=== PATIENT | male | born 1995 | race Caucasian/White ===

== ENCOUNTER 2022-05-19 09:10 | Emergency (ER) | payer OTHER ==
[2022-05-19] MEDS ORDERED: fentaNYL INJ 100 MCG/2 ML AMP IVP ONE (09:30)
--- NOTE | 2022-05-19 09:37 | ED Lower Extremity ---
General Chief Complaint: Lower Extremity Stated Complaint: WC LT FOOT INJ Source: patient Exam Limitations: no limitations (BOBY CARBONE) History of Present Illness Date Seen by Provider: May 19, 2022 Time Seen by Provider: 09:23 Initial Comments This is a 27yo M with no reported pmhx who presents for left foot injury this morning. Patient was at work when he endured a left foot injury due to a forklift boom falling on his foot, injury localized to the distal foot. Pt currently at 8/10 pain. Does not have a PCP. Denies any loss of feeling to the toes or feet. Does have limited range of motion of the left toes due to severe pain. No previous surgeries or injuries to the left foot or lower extremity. Pt is not sure when he had his last tetanus vaccination. Endorses cigarette use. Denies alcohol or illicit drug use. Pt reports no known allergies to medications. Location Injury Occurred: Left Foot Onset: this morning Pain/Injury Location: left foot Method of Injury: other (Forklift Boom fell on foot) Modifying Factors: Improves With Other (8/10 pain at rest with no modifying factors) (BOBY CARBONE) Allergies and Home Medications Allergies Coded Allergies: No Known Drug Allergies (Unverified , 05/19/22) Patient Home Medication List Home Medication List Reviewed: Yes (BOBY CARBONE) Oxycodone HCl/Acetaminophen (Percocet 5-325 mg Tablet) 1 Each Tablet, 1-2 TAB PO Q4H Prescribed by: ENRIQUE BLANCA on 05/19/22 1100 Sulfamethoxazole/Trimethoprim (Bactrim Ds Tablet) 1 Each Tablet, 1 EACH PO BID Prescribed by: ENRIQUE BLANCA on 05/19/22 1100 Review of Systems Constitutional: no symptoms reported Musculoskeletal: other (8/10 left foot pain.) Skin: change in color (bruising and erythema of left foot.) Psychiatric/Neurological: No Symptoms Reported (BOBY CARBONE) Past Aqiwxpm-Xuteyu-Mdanan Hx Patient Social History Tobacco Use?: Yes Tobacco type used: Cigarettes Smoking Status: Current Someday Smoker Use of E-Cig and/or Vaping dev: No Substance use?: No Alcohol Use?: No Pt feels they are or have been: No (BOBY CARBONE) Immunizations Up To Date Influenza Vaccine Up-to-Date: No; Not Current First/Initial COVID19 Vaccinat: Denies (BOBY CARBONE) Past Medical History Surgery/Hospitalization HX: Right leg ortho surgery (BOBY CARBONE) Physical Exam Vital Signs Vital Signs - First Documented 05/19/22 09:18 Temp 36.2 Pulse 57 Resp 16 B/P (MAP) 133/92 (106) Pulse Ox 99 O2 Delivery Room Air (ENRIQUE SAENZ MD) Vital Signs Capillary Refill : (BOBY CARBONE) Height, Weight, BMI Height: '" Weight: lbs. oz. kg; BMI Method: General Appearance: WD/WN, no apparent distress Cardiovascular: regular rate, rhythm, no edema, no murmur Respiratory: chest non-tender, lungs clear, normal breath sounds, no respiratory distress, no accessory muscle use Ankles: bilateral ankle non-tender, bilateral ankle normal inspection, bilateral ankle normal range of motion, bilateral ankle no evidence of injury Feet: left foot abrasions/lacerations (2cm laceration on dorsal toe #1), left foot ecchymosis (ecchymosis of distal foot, more prominent in toes #1-3), left foot limited range of motion (limited ROM of toes #1-5), left foot pain (8/10), left foot soft tissue tenderness Neurologic/Tendon: normal sensation, responds to pain Neurologic/Psychiatric: no motor/sensory deficits, alert, normal mood/affect, oriented x 3 (BOBY CARBONE) Progress/Results/Core Measures Results/Orders My Orders Orders - ENRIQUE SAENZ MD Ed Iv/Invasive Line Start (05/19/22 09:25) Fentanyl Inj (Sublimaze Injection) (05/19/22 09:30) Foot 3 View Left (05/19/22 09:31) Dipht,Pertuss(Acell),Tet Adult (Boostrix (05/19/22 09:45) Morphine Injection (Morphine Injection (05/19/22 10:12) Oxycodone/Apap 5/325mg Tablet (Percocet (05/19/22 11:00) (ENRIQUE SAENZ MD) Medications Given in ED Current Medications Medications Dose Ordered Sig/Renato Route Start Time Stop Time Status Last Admin Dose Admin Diphtheria/ Tetanus/Acell Pertussis 0.5 ml ONCE ONCE IM 05/19/22 09:45 05/19/22 09:46 DC 05/19/22 10:24 0.5 ML Fentanyl Citrate 75 mcg ONCE ONCE IVP 05/19/22 09:30 05/19/22 09:31 DC 05/19/22 09:30 75 MCG Oxycodone/ Acetaminophen 1 tab ONCE ONCE PO 05/19/22 11:00 05/19/22 11:01 DC 05/19/22 10:55 1 TAB (ENRIQUE SAENZ MD) Vital Signs/I&O 05/19/22 05/19/22 09:18 11:05 Temp 36.2 36.2 Pulse 57 47 Resp 16 16 B/P (MAP) 133/92 (106) 135/93 Pulse Ox 99 99 O2 Delivery Room Air Room Air (ENRIQUE SAENZ MD) Progress Progress Note : Progress Note Patient was found to have several fractures throughout all 5 toes. Metatarsals appear unaffected. He was first treated with fentanyl followed by morphine by IV route. Pain was eventually treated with Percocet prior to discharge. Wounds were washed with chlorhexidine and saline by nursing staff. There were no wounds appropriate for closure. The 2 lacerations on the dorsum of the foot were shallow and minor. A boot was dispensed and applied after wrapping the foot in gauze. Crutches were dispensed. Occupational health paperwork was completed. Dr. HATFIELD, orthopedic surgeon on-call, was consulted. See [facility] instructions for further discussion. Tetanus booster was administered. (ENRIQUE SAENZ MD) Diagnostic Imaging Diagonstic Imaging: Xray Plain Films/CT/US/NM/MRI: other (Left foot) Comments Left foot x-rays reviewed by me and report reviewed. See report below: NAME: YULY BATISTA [facility] REC#: [id number] PT STATUS: REG ER : 1995 PHYSICIAN: ENRIQUE SAENZ MD ADMIT DATE: 05/19/22/ER FS Signed Date of Exam:05/19/22 FOOT 3 VIEW LEFT CLINICAL HISTORY: Left foot pain. Crush injury. COMPARISON: None. TECHNIQUE: 3 views of the left foot. FINDINGS: Comminuted fracture seen involving the distal phalanx of the left great toe. There is extension into the left 1st IP joint. Additional transverse fracture seen at the distal aspect of the left 2nd proximal phalanx. This fracture does not appear to extend into the left 2nd PIP joint. There is fracture dislocation of the left 3rd DIP joint with additional transverse fracture at the distal aspect of the left 3rd distal phalanx. Likely nondisplaced fracture is seen in the diaphysis of the left 3rd proximal phalanx. There are fractures involving the distal 4th and 5th phalanges and within the middle phalanx of the left 5th digit. No fracture is seen in the more proximal foot. IMPRESSION: 1. Multiple fractures involving phalanges of all 5 digits of the left foot. These appear most significant in the left 1st and 3rd digits. Recommend continued close follow-up. Dictated by: Dictated on workstation # [id number] Dict: 05/19/2243 Trans: 05/19/2248 [id number] Interpreted by: ULYSSES GARCIA DO Electronically signed by: ULYSSES GARCIA DO 05/19/2248 (ENRIQUE SAENZ MD) Departure Impression Primary Impression: Crush injury of left foot Qualified Codes: S97.82XA - Crushing injury of left foot, initial encounter Additional Impressions: Fracture, toe Qualified Codes: S92.912A - Unspecified fracture of left toe(s), initial encounter for closed fracture Multiple fractures Laceration of foot Qualified Codes: S91.312A - Laceration without foreign body, left foot, initial encounter Disposition: 01 HOME, SELF-CARE Condition: Improved Departure-Patient Inst. Decision time for Depature: 10:55 (ENRIQUE SAENZ MD) Referrals: AARON DEL CASTILLO DO (PCP) Primary Care Physician ALANNA PIZARRO MD, MICHAEL P MD Patient Instructions: Contusion (DC), Crush Injury, Toe Fracture ED Add. Discharge Instructions: Elevate your foot to the level of your heart as much as possible. You may apply ice in 20-minute intervals several times a day to help with pain and swelling. Use Percocet as prescribed for pain. Avoid use of NSAID medications such as ibuprofen or naproxen as they may delay bone healing. Do not drive or operate machinery or make important decisions while on Percocet as it may cause significant drowsiness and foggy thinking. Percocet may also cause constipation. You may choose to use a stool softener such as Colace purchased [id number] to help prevent constipation while on Percocet. You need to be seen by an orthopedist or ruby on rails developer as soon as possible. Contact information for orthopedic providers in [place] is listed below. You should contact your work comp provider to discuss specific follow-up instructions or restrictions they may have in addition to following up with an orthopedic provider. Because you have skin wounds near your fracture sites, antibiotics are also being provided to prevent infection. Keep your foot in the boot as much as possible to protect the fractures. You may rest your foot on the ground but do not bear body weight on the foot. Use crutches to ambulate. You may shower as long as you do not bear weight on your foot when the boot is off. Return to care if you have worsening symptoms or other concerns. All discharge instructions reviewed with patient and/or family. Voiced understanding. Scripts Sulfamethoxazole/Trimethoprim (Bactrim Ds Tablet) 1 Each Tablet 1 EACH PO BID, #14 TAB Prov: ENRIQUE SAENZ MD 05/19/22 Oxycodone HCl/Acetaminophen (Percocet 5-325 mg Tablet) 1 Each Tablet 1-2 TAB PO Q4H for PAINMOD MDD 6 TABS, #30 TAB Prov: ENRIQUE SAENZ MD 05/19/22 Medical Student Attestation and Attending Note: I have personally interviewed and examined this patient along with Boby Carbone, MS 4. I have reviewed student documentation including history, physical, and assessments. I agree with the documentation except where otherwise noted. Exam: General: Alert, oriented, mild distress, well developed HEENT: Normocephalic and atraumatic Heart: Regular rate and rhythm without murmur Lungs: Clear to auscultation bilaterally with normal effort Extremities: Distal left foot notably ecchymotic and edematous. The toes are very ecchymotic, particularly the second toe. Sensation is retained throughout all 5 toes. Range of motion severely limited due to pain. Pedal pulses palpable. Abrasion and 2 shallow lacerations on the dorsal distal foot and great toe Neuropsych: Alert, oriented, no focal deficits Skin: Warm and dry without rashes, wounds on the left foot as above. (ENRIQUE SAENZ MD) Copy Copies To 1: TENNILLE HATFIELD MD, ABRAHAM May 19, 2022 09:37 ENRIQUE SAENZ MD May 19, 2022 10:59
[2022-05-19] MEDS ORDERED: TETANUS,DIPTH,PERTUSS P/F (BOOSTRIX) 0.5 ML VIAL IM ONE (09:45)
--- NOTE | 2022-05-19 09:48 | Diagnostic Imaging Report ---
CLINICAL HISTORY: Left foot pain. Crush injury. COMPARISON: None. TECHNIQUE: 3 views of the left foot. FINDINGS: Comminuted fracture seen involving the distal phalanx of the left great toe. There is extension into the left 1st IP joint. Additional transverse fracture seen at the distal aspect of the left 2nd proximal phalanx. This fracture does not appear to extend into the left 2nd PIP joint. There is fracture dislocation of the left 3rd DIP joint with additional transverse fracture at the distal aspect of the left 3rd distal phalanx. Likely nondisplaced fracture is seen in the diaphysis of the left 3rd proximal phalanx. There are fractures involving the distal 4th and 5th phalanges and within the middle phalanx of the left 5th digit. No fracture is seen in the more proximal foot. IMPRESSION: 1. Multiple fractures involving phalanges of all 5 digits of the left foot. These appear most significant in the left 1st and 3rd digits. Recommend continued close follow-up. Dictated by: Dictated on workstation # [id number]
[2022-05-19] MEDS ORDERED: morphine INJ 10 MG/ML 1ML (SYR OR VIAL) IVP STA (10:12)
[2022-05-19] MEDS ORDERED: SULF1TAB38 PO (11:00)
[2022-05-19] MEDS ORDERED: oxyCODONE/APAP 5/325MG (PERCOCET 5) TABLET PO ONE (11:00)
[2022-05-19] MEDS ORDERED: OXYC1TAB87 PO (11:00)
[2022-05-19 11:05] VITALS: BP 135/93
== END 2022-05-19 11:08 | disposition home or self-care (01) ==
LOC: ER FS 09:13
DX: S92.402A Displaced unspecified fracture of left great toe, initial encounter for closed fracture (principal); S92.502A Displaced unspecified fracture of left lesser toe(s), initial encounter for closed fracture; F17.200 Nicotine dependence, unspecified, uncomplicated; Z23 Encounter for immunization; W20.8XXA Other cause of strike by thrown, projected or falling object, initial encounter; Y92.59 Other trade areas as the place of occurrence of the external cause; Y99.0 Civilian activity done for income or pay
CPT/HCPCS: 73630; 90715